=== PATIENT | male | born 1980 | race Caucasian/White ===

== ENCOUNTER 2023-10-21 17:40 | Outpatient (CLI) | payer OTHER, SELFPAY | END 2023-10-21 17:41 | disposition home or self-care (01) | LOC: LKVREF 17:40 | PROVIDERS: PCP Family Medicine; Visit Provider Physician Assistant | DX: M10.9 Gout, unspecified (principal); M25.476 Effusion, unspecified foot | CPT/HCPCS: 84550 ==